=== PATIENT | male | born 1955 | race African-American/Black ===

== ENCOUNTER 2016-08-28 21:35 | Emergency (ER) | payer OTHER ==
[~2016-08-28] VITALS: Ht 167.6 cm; Wt 102.1 kg
[2016-08-28 21:35] VITALS: BP 135/75
[~2016-08-28 21:35] MED LIST: KEPPRA500 M4 ORAL
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
[2016-08-28 23:05] VITALS: BP 135/75
--- NOTE | 2016-08-29 10:31 | Diagnostic Imaging Report ---
Indication: Head trauma Technique: Contiguous 5 mm thick transaxial imaging of the head obtained in a Siem[employer] Sensation [address] scanner. Soft tissue and bone windows generated. Total Dose length Product (DLP): [address] Dose Index Volume (CTDIvol): 70.38 mGy Comparison: none Findings: There is a fairly large right frontal temporal craniectomy with an overlying mesh present. Some hardware noted as well. Large area of encephalomalacia noted in the right frontal lobe and right temporal lobe with extra-axial dilatation of portions of the right lateral ventricle. There is no mass effect or edema definitely seen. There is no midline shift or evidence of acute intracranial blood. Mucosal thickening noted within paranasal sinuses. Basal cisterns are intact. There is generalized ventriculomegaly which appears disproportionate to the degree of atrophy present which is very mild. Lateral and adjacent to the right temporomandibular joint there are small ossific foci within the soft tissues some extending into the inner aspect of the pinna. The nature of these calcifications is unknown and may be posttraumatic or postinflammatory. Please correlate clinically. Impression: No mass effect, midline shift, edema or acute intracranial hemorrhage identified. Disproportionate ventriculomegaly. Communicating hydrocephalus should be considered. 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 Sinusitis Unusual focus of soft tissue calcifications in the right ear. Query from prior trauma. The CT scanner at [facility] is accredited by the [employer] and the scans are performed using protocols designed to limit radiation exposure to as low as reasonably achievable to attain images of sufficient resolution adequate for diagnostic evaluation.
== END 2016-08-28 23:05 | disposition home or self-care (01) ==
LOC: EDBD 21:35 → EMR 21:55
DX: S00.81XA Abrasion of other part of head, initial encounter (principal); Y04.2XXA Assault by strike against or bumped into by another person, initial encounter; Y92.9 Unspecified place or not applicable; J32.9 Chronic sinusitis, unspecified; G93.89 Other specified disorders of brain; Z98.890 Other specified postprocedural states
CPT/HCPCS: 70450; 99284